=== PATIENT | female | born 1955 | race African-American/Black ===

== ENCOUNTER → 2023-11-26 14:50 | Outpatient (REF) | payer MEDICARE, OTHER, SELFPAY | LOC: HWRCS 14:50 | PROVIDERS: ATTENDING PHYSICIAN Internal Medicine; FAMILY PHYSICIAN Nurse Practitioner Adult Health | DX: R07.9 Chest pain, unspecified (principal) | CPT/HCPCS: 93306 ==

== ENCOUNTER → 2023-12-18 09:47 | Outpatient (REF) | payer MEDICARE, OTHER, SELFPAY | LOC: RCS 09:47 | PROVIDERS: ATTENDING PHYSICIAN Internal Medicine; FAMILY PHYSICIAN Nurse Practitioner Adult Health | DX: R07.9 Chest pain, unspecified (principal) | CPT/HCPCS: 93017; 93350 ==

== ENCOUNTER → 2024-01-27 13:21 | Outpatient (REF) | payer MEDICARE, OTHER, SELFPAY ==
[2024-01-27 14:01] LABS: % Basophils 0.5 % (0-2); % Eosinophils 0.7 % (0-6); % Immature Granulocytes 0.4 % (0-0.5); % Lymphocytes 33.7 % (20.5-51.1); % Monocytes 7.5 % (1.7-9.3); % Neutrophils 57.2 % (42.2-75.2); Absolute Basophils 0.1 10^3/uL (0-0.2); Absolute Eosinophils 0.1 10^3/uL (0-0.7); Absolute Lymphocytes 3.2 10^3/uL (1.2-3.4); Absolute Monocytes 0.7 10^3/uL (0.1-0.6); Absolute Neutrophils 5.4 10^3/uL (1.4-6.5); Hematocrit 37.2 % (37.0-47.0); Hemoglobin 12.5 g/dL (12.0-16.0); Mean Corp Hgb Conc. 33.6 g/dL (33.0-37.0); Mean Corpuscular Volume 83.2 fL (81.0-99.0); Mean Platelet Volume 10.5 fL (7.4-10.4); Nucleated Red Blood Cells % 0 %; Platelet Count 290 10^3/uL (130-400); Red Blood Cell Count 4.47 10^6/uL (4.20-5.40); White Blood Cell Count 9.5 10^3/uL (4.8-10.8)
[2024-01-27 14:29] LABS: ALT (SGPT) 29 U/L (0-35); AST (SGOT) 37 U/L (14-36); Albumin 4.7 g/dl (3.5-5.0); Alkaline Phosphatase 97 U/L (38-126); Blood Urea Nitrogen 16 mg/dl (7-17); Calcium 10.1 mg/dl (8.4-10.2); Carbon Dioxide 23 mmol/L (22-30); Chloride 104 mmol/L (98-107); Glucose 92 mg/dl (70-99); HDL Cholesterol 45 mg/dl; LDL Cholesterol, Calculated 123 mg/dl; Potassium 4.3 mmol/L (3.5-5.1); Sodium 136 mmol/L (135-145); Total Bilirubin 0.6 mg/dl (0.2-1.3); Total Cholesterol 211 mg/dl (50-199); Total Protein 7.7 g/dl (6.3-8.2); Triglyceride 215 mg/dl (10-149); Very Low Density Lipoprotein 43 mg/dl (0-30); eGFR > 60.00
[2024-01-27 15:04] LABS: TSH Reflex To Free T4 3.38 uIU/ml (0.47-4.68)
== END ==
LOC: REG 13:21
PROVIDERS: ATTENDING PHYSICIAN Family Medicine
DX: E78.2 Mixed hyperlipidemia (principal); I10 Essential (primary) hypertension; E03.9 Hypothyroidism, unspecified; Z00.00 Encounter for general adult medical examination without abnormal findings; Z79.899 Other long term (current) drug therapy
CPT/HCPCS: 36415; 80053; 80061; 84443; 85025

== ENCOUNTER → 2024-05-05 15:16 | Outpatient (REF) | payer MEDICARE, OTHER, SELFPAY ==
[2024-05-05 16:29] LABS: ALT (SGPT) 25 U/L (0-35); AST (SGOT) 35 U/L (14-36); Albumin 4.9 g/dl (3.5-5.0); Alkaline Phosphatase 109 U/L (38-126); Blood Urea Nitrogen 11 mg/dl (7-17); Calcium 10.7 mg/dl (8.4-10.2); Carbon Dioxide 24 mmol/L (22-30); Chloride 105 mmol/L (98-107); Glucose 69 mg/dl (70-99); Potassium 4.3 mmol/L (3.5-5.1); Sodium 139 mmol/L (135-145); Total Bilirubin 0.5 mg/dl (0.2-1.3); Total Protein 7.7 g/dl (6.3-8.2); eGFR > 60.00
[2024-05-05 17:09] LABS: Hepatitis B Surface Antigen Negative (Negative)
[2024-05-05 17:13] LABS: Vitamin D, 25-OH*** 81.3 ng/mL (30-80)
[2024-05-05 17:19] LABS: GGTP 26 U/L (12-43)
[2024-05-05 17:26] LABS: Hepatitis B Core Ab, Total Negative (Negative); Hepatitis B Surface Antibody Negative; Hepatitis C Antibody Negative (Negative)
[2024-05-05 17:46] LABS: Folate > 20.0 ng/ml (2.76-20); Vitamin B12 907 pg/ml (239-931)
== END ==
LOC: REG 15:16
PROVIDERS: ATTENDING PHYSICIAN Family Medicine
DX: E55.9 Vitamin D deficiency, unspecified (principal); R79.89 Other specified abnormal findings of blood chemistry; E53.8 Deficiency of other specified B group vitamins
CPT/HCPCS: 36415; 80053; 82306; 82607; 82746; 82977; 86704; 86706; 86803; 87340

== ENCOUNTER → 2024-10-12 09:26 | Outpatient (REF) | payer MEDICARE, OTHER, SELFPAY | LOC: HWRAD 09:26 | PROVIDERS: ATTENDING PHYSICIAN Family Medicine; REFERRING PHYSICIAN Internal Medicine | DX: E53.8 Deficiency of other specified B group vitamins (principal); E55.9 Vitamin D deficiency, unspecified; R79.89 Other specified abnormal findings of blood chemistry | CPT/HCPCS: 76700 ==

== ENCOUNTER → 2024-10-22 14:41 | Outpatient (REF) | payer MEDICARE, OTHER, SELFPAY | LOC: HWWDC 14:41 | PROVIDERS: ATTENDING PHYSICIAN Family Medicine | DX: Z78.0 Asymptomatic menopausal state (principal); Z12.31 Encounter for screening mammogram for malignant neoplasm of breast | CPT/HCPCS: 77063; 77067; 77080 ==

== ENCOUNTER → 2025-03-26 12:45 | Outpatient (REF) | payer MEDICARE, OTHER, SELFPAY ==
[2025-03-26 13:34] LABS: % Basophils 0.6 % (0-2); % Eosinophils 0.9 % (0-6); % Immature Granulocytes 0.5 % (0-0.5); % Lymphocytes 24.3 % (20.5-51.1); % Monocytes 7.2 % (1.7-9.3); % Neutrophils 66.5 % (42.2-75.2); Absolute Basophils 0.1 10^3/uL (0-0.2); Absolute Eosinophils 0.1 10^3/uL (0-0.7); Absolute Lymphocytes 1.9 10^3/uL (1.2-3.4); Absolute Monocytes 0.6 10^3/uL (0.1-0.6); Absolute Neutrophils 5.2 10^3/uL (1.4-6.5); Hematocrit 39.5 % (37.0-47.0); Hemoglobin 12.5 g/dL (12.0-16.0); Mean Corp Hgb Conc. 31.6 g/dL (33.0-37.0); Mean Corpuscular Hgb 27.5 pg (27.0-31.0); Mean Corpuscular Volume 86.8 fL (81.0-99.0); Mean Platelet Volume 11.5 fL (7.4-10.4); Nucleated Red Blood Cells % 0 %; Platelet Count 285 10^3/uL (130-400); Red Blood Cell Count 4.55 10^6/uL (4.20-5.40); Red Cell Dist. Width 13.2 % (11.5-14.5); White Blood Cell Count 7.9 10^3/uL (4.8-10.8)
[2025-03-26 15:11] LABS: ALT (SGPT) 22 U/L (0-35); AST (SGOT) 29 U/L (14-36); Albumin 4.9 g/dl (3.5-5.0); Alkaline Phosphatase 99 U/L (38-126); Blood Urea Nitrogen 16 mg/dl (7-17); Carbon Dioxide 24 mmol/L (22-30); Chloride 107 mmol/L (98-107); Glucose 106 mg/dl (70-99); HDL Cholesterol 42 mg/dl; LDL Cholesterol, Calculated 229 mg/dl; Potassium 4.5 mmol/L (3.5-5.1); Sodium 143 mmol/L (135-145); Total Bilirubin 0.6 mg/dl (0.2-1.3); Total Cholesterol 309 mg/dl (50-199); Total Protein 8.2 g/dl (6.3-8.2); Triglyceride 192 mg/dl (10-149); Very Low Density Lipoprotein 38 mg/dl (0-30); eGFR > 60.00
[2025-03-26 15:25] LABS: TSH Reflex To Free T4 1.92 uIU/ml (0.47-4.68)
== END ==
LOC: REG 12:45
PROVIDERS: ATTENDING PHYSICIAN Internal Medicine; FAMILY PHYSICIAN Family Medicine
DX: E78.2 Mixed hyperlipidemia (principal); R79.89 Other specified abnormal findings of blood chemistry; Z13.1 Encounter for screening for diabetes mellitus; E03.9 Hypothyroidism, unspecified; M15.9 Polyosteoarthritis, unspecified; R53.83 Other fatigue
CPT/HCPCS: 36415; 80053; 80061; 84443; 85025

== ENCOUNTER → 2025-07-20 09:35 | Outpatient (REF) | payer MEDICARE, OTHER, SELFPAY ==
[2025-07-20 11:25] LABS: ALT (SGPT) 23 U/L (0-35); AST (SGOT) 31 U/L (14-36); Albumin 4.6 g/dl (3.5-5.0); Alkaline Phosphatase 104 U/L (38-126); Blood Urea Nitrogen 13 mg/dl (7-17); Calcium 9.9 mg/dl (8.4-10.2); Carbon Dioxide 25 mmol/L (22-30); Chloride 107 mmol/L (98-107); Glucose 109 mg/dl (70-99); HDL Cholesterol 40 mg/dl; LDL Cholesterol, Calculated 155 mg/dl; Potassium 4.3 mmol/L (3.5-5.1); Sodium 140 mmol/L (135-145); Total Protein 7.5 g/dl (6.3-8.2); Very Low Density Lipoprotein 51 mg/dl (0-30); eGFR > 60.00
== END ==
LOC: REG 09:35
PROVIDERS: ATTENDING PHYSICIAN Internal Medicine; FAMILY PHYSICIAN Family Medicine
DX: E78.2 Mixed hyperlipidemia (principal); R79.89 Other specified abnormal findings of blood chemistry
CPT/HCPCS: 36415; 80053; 80061